=== PATIENT | male | born 1955 | race Two or more races ===

== ENCOUNTER → 2016-09-26 | Outpatient (CLI) | payer OTHER | END | disposition home or self-care (01) | LOC: CFH 13:56 | PROVIDERS: ATTEND Ophthalmology | DX: H53.2 Diplopia (principal); H05.823 Myopathy of extraocular muscles, bilateral; H05.20 Unspecified exophthalmos; M62.89 Other specified disorders of muscle | CPT/HCPCS: 70480 ==